=== PATIENT | male | born 1980 | race Two or more races ===

== ENCOUNTER 2024-10-05 00:14 | Emergency (ER) | payer MEDICAID, SELFPAY ==
[2024-10-05 00:15] VITALS: BP 141/97; PULSE 99; RESP 18; TEMP 36.8; O2SAT 99
[2024-10-05 00:17] VITALS: BMI 27.4
--- NOTE | 2024-10-05 00:50 | EDNOTE_ITS ---
ED Dental RME/HPI General Chief complaint: General Adult/Misc Complain Stated complaint: BLISTERSS IN MOUTH Time Seen by Provider: 10/05/24 00:17 Arrival date/time: 10/05/24 00:14 This is a case of a 44-year-old male with no medical history came in in the emergency room due to mouth pain history of present illness started 4 days prior to arrival in the emergency room patient noted a white spot on the tongue and buccal mucosa with small blisters patient denies any dental pain denies any pain or fever or chills. Denies sore throat Limitations: no limitations Related Data Previous Rx's ?Medication ?Instructions ?Recorded tramadol 50 mg tablet (Ultram) 50 mg PO Q6HR PRN sever e pain #30 10/12/15 tabs doxycycline monohydrate 100 mg 100 mg PO BID 10 days # 20 caps 10/05/24 capsule lidocaine HCl 2 % mucosal solution 10 ml PO Q4H PRN or al pain #100 mL 10/05/24 (Lidocaine Viscous) nystatin 100,000 unit/mL oral 500,000 unit (5 mL) PO T ID 3 days 10/05/24 suspension #45 mL Allergies Allergy/AdvReac Type Severity Reaction Status Date / Time No Known Allergies Allergy Verified 10/05/24 00:17 Review of Systems Review of Systems Systems Reviewed: All systems reviewed, normal except as documented Constitutional Constitutional: Reports system reviewed and no additional complaints, except as documented, Reports as per HPI and Denies headache(s) ENT Ears, Nose, Mouth, and Throat: Reports system reviewed and no additional complaints, except as documented, Reports as per HPI, Denies abnormal hearing, Denies bleeding gums, Denies change in voice, Denies dental pain, Denies dis equilibrium, Denies dizziness, Denies dry mouth, Denies dysphagia, Denies ear discharge, Denies otalgia, Denies epistaxis, Denies facial pain, Denies halitosis, Denies headache(s), Denies hearing loss, Denies hoarseness, Denies lip swelling, Reports mouth lesions, Reports mouth pain, Denies nasal congestion, Denies nasal discharge, Denies nasal obstruction, Denies nasal trauma, Denies neck mass, Denies neck pain, Denies nose pain, Denies odynophagia, Denies post nasal drip, Denies sinus pain, Denies sinus pressure, Denies sore throat, Denies throat swelling, Denies tinnitus, Denies vertigo and Denies other Cardiovascular Cardiovascular: Reports system reviewed and no additional complaints, except as documented and Reports as per HPI Respiratory Respiratory: Reports system reviewed and no additional complaints, except as documented and Reports as per HPI Gastrointestinal Gastrointestinal: Reports system reviewed and no additional complaints, except as documented, Reports as per HPI, Denies dysphagia and Denies odynophagia Musculoskeletal Musculoskeletal: Denies neck pain Neurologic Neurologic: Reports system reviewed and no additional complaints, except as documented, Reports as per HPI, Denies abnormal hearing, Denies disequilibrium, Denies dizziness, Denies headache(s) and Denies vertigo Allergic/Immunologic Allergic/Immunologic: Denies lip swelling and Denies throat swelling Past Medical History Past Medical History NEUROLOGIC: Negative Seizures CARDIAC: Negative Cardiac Disorders or Congestive Heart Failure RESPIRATORY: Negative Chronic Obstructive Pulmonary Disease (COPD) or Asthma GASTROINTESTINAL: Positive Ulcer GENITOURINARY: Negative Renal Disease ENDOCRINE: Negative Diabetes Mellitus Type 1 or Diabetes Mellitus Type 2 HEMATOLOGIC: Negative Sickle Cell Disease OTHER HISTORY: Negative Blood Transfusions, Blood Transfusion Reaction or Anesthesia Reactions Social History SMOKING STATUS: Never smoker SUBSTANCE USE: does not use ED Exam General Limitations: Present no limitations General appearance: Present alert, in no apparent distress and other (Patient is awake alert oriented not in distress nontoxic looking) Head Head exam: Present atraumatic, normocephalic and normal inspection Eye Eye exam: Present normal appearance, PERRL and EOMI ENT ENT exam: Present normal exam, normal oropharynx and mucous membranes moist Expanded ENT Exam External ear exam: Present other (HEENT exam except oral exam) Nose exam: Absent sinus tenderness, nasal deviation, crepitus, septal hematoma, laceration or abrasion Mouth exam: Present other (Noted white spots on the tongue and upper and buccal mucosa with small blister no ulcer no abscess no cellulitis); Absent drooling, trismus, lip swelling, tongue normal, tongue elevation or tongue swelling Teeth exam: Present normal inspection Throat exam: Present normal inspection; Absent tonsillar erythema, tonsillomegaly, tonsillar exudate, R peritonsillar mass, L peritonsillar mass or muffled voice Neck Neck exam: Present normal inspection, full ROM and trachea midline; Absent tenderness, meningismus, lymphadenopathy or thyromegaly Chest Chest inspection: Present normal inspection and symmetric chest wall rise; Absent tenderness Respiratory Respiratory exam: Present normal lung sounds bilaterally; Absent respiratory distress, wheezes, stridor, accessory muscle use or prolonged expiratory phase Cardiovascular Cardiovascular exam: Present regular rate and normal rhythm; Absent bradycardia, tachycardia, irregular rhythm, normal heart sounds or systolic murmur Abdominal Exam Abdominal exam: Present soft and normal bowel sounds Extremities Exam Extremities exam: Present normal inspection and full ROM Back Exam Back exam: Present normal inspection and full ROM Neurological Exam Neurological exam: Present alert, oriented X3, CN II-XII intact, normal gait and reflexes normal; Absent motor sensory deficit Psychiatric Psychiatric exam: Present normal affect and normal mood Skin Skin exam: Present warm, dry, intact and normal color Course Quality Measures none Vital Signs Vital signs: Vital Signs Temperature 98.2 F 10/05/24 00:15 Pulse Rate 99 10/05/24 00:15 Respiratory Rate 18 10/05/24 00:15 Blood Pressure 141/97 H 10/05/24 00:15 Pulse Oximetry (%) 99 10/05/24 00:15 Oxygen Delivery Method Room Air 10/05/24 00:15 Oxygen saturation is 90% in room air Dental / Oral MDM Narrative MDM Narrative:: This is a case of a 44-year-old male with no medical history came in in the emergency room due to mouth pain history of present illness started 4 days prior to arrival in the emergency room patient noted a white spot on the tongue and buccal mucosa with small blisters patient denies any dental pain denies any pain or fever or chills. Denies sore throat physical examination patient is awake alert oriented not in distress nontoxic looking well-hydrated well-nourished HEENT exam is normal except oral exam patient noted a white spot on the tongue suggestive of oral candidiasis dental exam is normal no cellulitis no abscess based on my physical examination and history patient symptoms suggestive of oral candidiasis patient was discharged with nystatin and lidocaine viscous as needed for pain patient requested with antibiotic that was discharged with doxycycline patient was advised to take the doxycycline if symptoms persist for more than 7 days for any worsening symptoms or any emergent concern return precaution in the emergency room was advised oral care is advised Patient was discharged with comfortable condition walking with stable gait. Patient verbalized no further complains explained diagnosis and answered patient question. Patient is comfortable with the proposed management plan including the need to follow up with his/her primary care physician and any specialist if applicable Discussed patient for any urgent condition or worsening sx, He/She needed to go to emergency room immediately or call 911. Patient acknowledge the responsibility to follow up as instructed and to monitor her/his symptoms. For any persistence of the symptoms for more than 3-5 days return precaution advised. Discussed the result of the test and was given printed discharge instruction Patient data External records reviewed:: [facility] previous records Clinical information provided by:: patient Social determinants that could affect healthcare access:: none Patient has the following chronic illnesses:: None How is presenting disease/condition affected by chronic disease/condition?: no chronic disease Evaluation data The following diagnostics were reviewed and interpreted by me:: other (specify) (None) Lab and/or radiology exams considered but not ordered:: None Interpretation Summary: None Medications / Prescriptions Medications or Prescriptions considered but not ordered:: Given Medication administrations:: Given Consultations Consultation(s) initiated? (list below): No Diagnosis Dental Differential Diagnosis: gingival abscess, aphthous ulcer and other (Oral candidiasis) Most likely diagnosis given after review of the tests above:: Oral candidiasis Admission Indicated Admission indicated?: not indicated Explain why admission is indicated or not indicated:: Not indicated Admission Request Was there a request for admission?: No Admission Attestation Admission request attestation: Not indicated Disposition Plan Disposition Plan: Discharge Discharge Attestation Discharge Attestation: The patient and all family members were given an opportunity to ask questions and understood the discharge instructions. Discharge instructions specifically effects, indications for sooner follow up or return to the emergency department, and the expected course of current diagnosis. Patient condition: Stable Discharge Plan Plan Patient Disposition: HOME (Self Care) Patient condition on transfer: Stable Prescriptions/Referrals Prescriptions/Med Rec: New nystatin 100,000 unit/mL suspension 500,000 unit PO TID 3 Days Qty: 45 0RF Rx Instructions: administer 1/2 of dose in each side of the mouth lidocaine HCl [Lidocaine Viscous] 2 % solution 10 ml PO Q4H PRN (Reason: oral pain) Qty: 100 0RF Rx Instructions: Swish and swallow doxycycline monohydrate 100 mg capsule 100 mg PO BID 10 Days Qty: 20 0RF No Action tramadol [Ultram] 50 MG tablet 50 mg PO Q6HR PRN (Reason: severe pain) Qty: 30 0RF Rx Instructions: FOR PAIN, NOT TO EXCEED 8 TABS IN 24 HRS Problem List Clinical Impression: Candidiasis, mouth Patient/Caregiver Discharge Instructions Education Materials: Dejah Infection: Thrush Additional Instructions: Follow-up with your primary care physician in 2 days for reevaluation worsening symptoms or any emergent concern call 911 or go to the nearest emergency room take your medication as directed oral care is advised Print Language: [place] Citizen Stand Alone Forms: Edyta Award Info., Patient Portal Info Letter PA/SOLE CONDITIONER Supervising Physician PA/SOLE CONDITIONER Supervising Physician: Dr. Downs
== END 2024-10-05 01:01 | disposition home or self-care (01) ==
LOC: SERX 01:02
PROVIDERS: Emergency Provider Emergency Medicine
DX: B37.0 Candidal stomatitis (principal)
CPT/HCPCS: 99281

== ENCOUNTER 2024-12-18 22:49 | Emergency (ER) | payer MEDICAID, SELFPAY ==
--- NOTE | 2024-12-18 00:29 | XR_ITS ---
EXAMINATION: AP chest single view TECHNIQUE: AP portable upright chest single view Date and time: December 19, 2024, 1218 hours, comparison February 04, 2022 INDICATIONS: Chest pain shortness of breath beginning 2 days ago. FINDINGS: Normal heart size Lungs are clear. Osseous structures are intact IMPRESSION: No active disease
[2024-12-18 22:49] VITALS: BMI 29.2
[2024-12-18 23:28] LABS: Collection Type, Urine Clean Catch; Squamous Epithelial Cell,Urine 0 /hpf (0-5)
[2024-12-18 23:31] VITALS: BP 130/81; PULSE 68; RESP 18; TEMP 36.6; O2SAT 97
[2024-12-18 23:42] LABS: Bilirubin,Urine Negative (Negative); Blood,Urine Negative (Negative); Clarity,Urine Clear (Clear/Hazy); Color,Urine Lt-Yellow (Lt Yel-Yel); Culture Indicated,Urine Not Indicated; Glucose, Urine Negative (Negative); Ketones,Urine Negative (Negative); Leukocyte Esterase,Urine Negative (Negative); Nitrite,Urine Negative (Negative); PH,Urine 6.5 (5.0-7.0); Protein,Urine Negative (Neg - Trace); RBC,Urine 2 /hpf (0-3); Specific Gravity,Urine 1.021 (1.001-1.035); Urobilinogen,Urine Negative mg/dL (0.0-1.0); WBC,Urine 2 /hpf (0-5)
--- NOTE | 2024-12-18 23:52 | XR_ITS ---
Examination: CT chest, without intravenous contrast. CT abdomen, without intravenous contrast. CT pelvis, without intravenous contrast. 2-D sagittal and coronal reconstructions. 3-D reconstructions. Date and time of exam: December 19, 2024, 0012 hours INDICATIONS: Left-sided chest and flank pain beginning 4 days ago CTDI vol (mgy) 7.21 DLP (MGycm) 523 Technique: Multiple CT images, 3.0 mm slice thickness, obtained chest, abdomen, pelvis, with the high-resolution 64 slice scanner.. Sagittal and coronal 2-D reconstructions are obtained. 3-D reconstructions Low dose protocols were performed. One or more of the following dose reduction techniques were used; automated exposure control, adjustment of the mA and/or KV according to patient size, use of iterative reconstruction technique. Findings: No thoracic aortic aneurysmal dilatation Pulmonary artery segments are not enlarged. No mediastinal lymphadenopathy. No pneumonia or pulmonary edema or pleural disease No focal liver or splenic lesions No gallstones No pancreatic or adrenal mass No renal or ureteral calculi, no hydronephrosis Aorta normal size No bowel obstruction 15 mm fat-containing umbilical hernia Normal appendix No diverticulitis The seminal vesicles are not enlarged Normal prostate Contracted urinary bladder Osseous structures are intact IMPRESSION: No acute process in the chest abdomen or pelvis
[2024-12-19 00:04] VITALS: BP 140/85; PULSE 80; RESP 18; TEMP 36.8; O2SAT 97
[2024-12-19] MEDS: SODIUM CHLORIDE 0.9% 1000 ML 1,000 ML 999 ML IV (00:06)
[2024-12-19] MEDS: ONDANSETRON INJ 2 MG/ML INJ 2 ML 4 MG IVP (00:07)
[2024-12-19] MEDS: KETOROLAC INJ 30 MG/ML VIAL IVP (00:07)
--- NOTE | 2024-12-19 00:10 | EDNOTE_ITS ---
ED Abdominal Pain RME/HPI General Chief Complaint: Abdominal Pain Stated complaint: LLQ PAIN X 4 DAYS Time seen by provider: 12/18/24 23:46 Arrival date/time: 12/18/24 22:49 RME / HPI RME / HPI narrative: See [facility] for Dr. Combs's HPI Documentation. Related Data Previous Rx's ?Medication ?Instructions ?Recorded tramadol 50 mg tablet (Ultram) 50 mg PO Q6HR PRN sever e pain #30 10/12/15 tabs lidocaine HCl 2 % mucosal solution 10 ml PO Q4H PRN or al pain #100 mL 10/05/24 (Lidocaine Viscous) acetaminophen 300 mg-codeine 30 mg 2 tab PO Q8H PRN pa in #20 tabs 12/19/24 tablet ibuprofen 600 mg tablet 600 mg PO TID PRN fever or p ain 12/19/24 #30 tabs Allergies Allergy/AdvReac Type Severity Reaction Status Date / Time No Known Allergies Allergy Verified 12/18/24 22:52 Review of Systems Review of Systems Systems Reviewed: All systems reviewed, normal except as documented Past Medical History Past Medical History GASTROINTESTINAL: Positive Ulcer ED Exam Narrative Physical exam: See [facility] for Dr. Combs's Physical Exam Documentation. Course Quality Measures none Orders Category Date Time Status Saline [Insert IV] NOW Care 12/18/24 23:[address] chest abdomen pelvis wo Stat Exams 12/18/24 23:52 Taken XR chest 1V portable Stat Exams 12/18/24 00:29 Taken Alcohol, Blood Medical Stat Lab 12/18/24 00:08 Completed Amylase Stat Lab 12/18/24 00:08 Completed Bilirubin,Direct Stat Lab 12/18/24 00:08 Completed CBC Stat Lab 12/18/24 00:08 Completed CK [Creatine Kinase] Stat Lab 12/18/24 00:08 Completed CMP [Comprehensive Metabolic Panel] Stat Lab 12/18/24 00:08 Completed Drug Screen,Urine Stat Lab 12/18/24 23:51 Completed Hemoglobin A1C [Glycohemoglobin w (eAG)] Stat Lab 12/18/24 00:08 Completed Lipase Stat Lab 12/18/24 00:08 Completed Magnesium Stat Lab 12/18/24 00:08 Completed UA, C/S IF [Urinalysis, C/S if Indicated] Stat Lab 12/18/24 23:20 Completed Ketorolac Inj [Toradol Inj] Med 12/18/24 23:51 Discontinued 30 mg IVP X1 ONE Ondansetron Inj [Zofran Inj] Med 12/18/24 23:51 Discontinued 4 mg IVP X1 ONE Sodium Chloride 0.9% 1000 ml [Ns] 1,000 ml Med 12/18/24 23:51 Discontinued IV 999 mls/hr Vital Signs Vital signs: Vital Signs Temperature 98 F 12/18/24 23:31 Pulse Rate 68 12/18/24 23:31 Respiratory Rate 18 12/18/24 23:31 Blood Pressure 130/81 12/18/24 23:31 Pulse Oximetry (%) 97 12/18/24 23:31 Oxygen Delivery Method Room Air 12/18/24 23:31 Abdominal Pain MDM MDM Narrative MDM Narrative:: This section includes all my notes and documentations, including HPI, PE, and ED course. Terrell Combs MD HPI: 44-year-old male here with several days of left-sided abdominal pain. Has trou ble localizing the pain further. Has trouble describing the quality and quantity of the pain. Seems to be worse with certain movement. 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 No other complaints. ROS: All negative except as documented in HPI. Physical Exam: General: Alert and oriented. No acute distress when remaining still. Eyes: Conjunctivae and lids clear. ENT: No nasal congestion. Neck: Supple. Heart: RRR. Lungs: No respiratory distress. Good air movement. No rhonchi, wheezing, rales. Abdomen: Soft with equivocal left-sided tenderness. Normal bowel sounds. No distension. No rebound or guarding. Back: No CVA tenderness. Skin: Warm and dry. Neuro: Alert and oriented X 3. I reviewed all diagnostic test results: My interpretation of the chest x-ray is: NAD. My review of the Chest/Abdomen/Pelvis CT report is: No acute findings. Blood tests and urine tests unremarkable. At this point, diagnoses include: Abdominal Wall Pain Treatment here included: IVF Toradol 30 mg Zofran 4 mg He felt much better. Recommended more outpatient workup. Based on my best medical judgment, made decision no further evaluation or treatment indicated at this time. Patient understands and agrees to the discharge instructions customized and printed, see below. Discharge Instructions from Dr. Combs printed for you: 1. After extensive evaluation, there is no emergency such as appendicitis needing urgent surgery. 2. And all your internal organs, including lungs and liver and kidneys are normal. 3. Your pain is most likely originating from the abdominal wall (see attached handout on abdominal muscle strain). And not from an internal organ. 4. Apply ice or heat if helpful. 5. Ibuprofen 600 mg every 6-8 hours today and tomorrow to decrease inflammation then as needed. 6. Tylenol with codeine for severe pain. 7. See a private doctor on 12/22/2024 for recheck. Ask to review all test results and official radiology reports, to make sure you receive all necessary follow-ups and monitoring. To make sure there is no serious intra-abdominal condition, ask for help with more investigation not available here in the ER. Such as EGD or scoping the stomach, colonoscopy or scoping the colon, and referral to see industrial gas servicer supervisor. 8. Seek immediate medical care with worsening or with any concerns. Terrell Combs MD Patient data External records reviewed:: [facility] previous records (Reviewed prior ED records from 10/05/24. Patient was seen for Candidiasis, mouth.) Clinical information provided by:: patient Social determinants that could affect healthcare access:: none Patient has the following chronic illnesses:: Ulcer How is presenting disease/condition affected by chronic disease/condition?: exacerbated by Evaluation data The following diagnostics were reviewed and interpreted by me:: lab results and radiology exam(s) Lab and/or radiology exams considered but not ordered:: None Interpretation Summary: I reviewed all diagnostic test results: My interpretation of the chest x-ray is: NAD. My review of the Chest/Abdomen/Pelvis CT report is: No acute findings. Blood tests and urine tests unremarkable. Medications / Prescriptions Medications or Prescriptions considered but not ordered:: None Medication administrations:: Medication Administration History Discontinued Medications Sodium Chloride (Ns) 1,000 mls @ 999 mls/hr IV .Q1H1M ONE Stop: 12/19/24 00:51 Last Infusion: 12/19/24 01:07 Dose: Infused Documented By: Admin: 12/19/24 00:06 Dose: 999 mls/hr Documented By: GERALDINE Ketorolac Tromethamine (Ketorolac Inj 30 Mg/Ml Vial) 30 mg IVP X1 ONE Stop: 12/18/24 23:52 Last Admin: 12/19/24 00:07 Dose: 30 mg Documented By: GERALDINE Ondansetron HCl (Ondansetron Inj 2 Mg/Ml Inj 2 Ml) 4 mg IVP X1 ONE; Protocol Stop: 12/18/24 23:52 Last Admin: 12/19/24 00:07 Dose: 4 mg Documented By: GERALDINE IVF Toradol 30 mg IV Zofran 4 mg IV Consultations Consultation(s) initiated? (list below): No Diagnosis Differential diagnosis abdominal pain: abdominal pain, calculus of kidney, constipation, gastroenteritis, pancreatitis, small bowel obstruction and other (Gastritis, GERD) Most likely diagnosis given after review of the tests above:: Abdominal Wall Pain Admission Indicated Admission indicated?: not indicated Explain why admission is indicated or not indicated:: With significant improvement and no condition needing emergent intervention, the re was no indication for admission. Admission Request Was there a request for admission?: No Disposition Plan Disposition Plan: Discharge Discharge Attestation Discharge Attestation: The patient and all family members were given an opportunity to ask questions and understood the discharge instructions. Discharge instructions specifically effects, indications for sooner follow up or return to the emergency department, and the expected course of current diagnosis. Patient condition: Stable Discharge Plan Plan Patient Disposition: HOME (Self Care) Prescriptions/Referrals Prescriptions/Med Rec: New acetaminophen-codeine 300-30 mg tablet 2 tab PO Q8H MDD 6 PRN (Reason: pain) Qty: 20 0RF ibuprofen 600 mg tablet 600 mg PO TID PRN (Reason: fever or pain) Qty: 30 0RF No Action tramadol [Ultram] 50 MG tablet 50 mg PO Q6HR PRN (Reason: severe pain) Qty: 30 0RF Rx Instructions: FOR PAIN, NOT TO EXCEED 8 TABS IN 24 HRS lidocaine HCl [Lidocaine Viscous] 2 % solution 10 ml PO Q4H PRN (Reason: oral pain) Qty: 100 0RF Rx Instructions: Swish and swallow Referrals: Faith Rasmussen PA-C [Primary Care Provider] - In 1 week Problem List Clinical Impression: Abdominal wall pain Patient/Caregiver Discharge Instructions Discharge Activity: activity as tolerated Education Materials: ED Muscle Strain, Abdomen Additional Instructions: Discharge Instructions from Dr. Combs printed for you: 1. After extensive evaluation, there is no emergency such as appendicitis needing urgent surgery. 2. And all your internal organs, including lungs and liver and kidneys are n ormal. 3. Your pain is most likely originating from the abdominal wall (see attached handout on abdominal muscle strain). And not from an internal organ. 4. Apply ice or heat if helpful. 5. Ibuprofen 600 mg every 6-8 hours today and tomorrow to decrease inflammation then as needed. 6. Tylenol with codeine for severe pain. 7. See a private doctor on 12/22/2024 for recheck. Ask to review all test results and official radiology reports, to make sure you receive all necessary follow-ups and monitoring. To make sure there is no serious intra-abdominal condition, ask for help with more investigation not available here in the ER. Such as EGD or scoping the stomach, colonoscopy or scoping the colon, and referral to see industrial gas servicer supervisor. 8. Seek immediate medical care with worsening or with any concerns. Print Language: [place] Stand Alone Forms: Edyta Award Info., Patient Portal Info Letter
[2024-12-19 00:38] LABS: Basophils # (Auto) 0.0 Thou/mm3 (0.0-0.2); Basophils % (Auto) 0 % (0-2.5); Eosinophils # (Auto) 0.1 Thou/mm3 (0.0-0.5); Eosinophils % (Auto) 1 % (0-10); Hematocrit 43.8 % (41.0-53.0); Hemoglobin 14.9 g/dL (13.5-16.0); Immature Granulocytes Auto 0.02 Thou/mm3 (0.00-0.00); Lymphocytes # (Auto) 0.9 Thou/mm3 (1.0-4.8); Lymphocytes % (Auto) 11 % (10-50); Mean Corpuscular HGB Conc 34.0 g/dl (31.0-37.0); Mean Corpuscular Hemoglobin 30.2 pg (25.0-35.0); Mean Corpuscular Volume 89 fL (80-100); Monocytes # (Auto) 0.5 Thou/mm3 (0.0-0.8); Monocytes % (Auto) 6 % (0-12); Neutrophils # (Auto) 6.3 Thou/mm3 (1.8-7.7); Neutrophils % (Auto) 81 % (37-80); Nucleated Red Blood Cell # 0.00 Thou/mm3 (0.00-0.00); Nucleated Red Blood Cell % 0 /100 WBC (0); Platelet Count 158 Thou/mm3 (140-440); RDW Standard Deviation 41.1 fL (35.1-43.9); Red Blood Count 4.93 Miln/mm3 (4.50-5.90); White Blood Count 7.8 Thou/mm3 (3.8-10.6)
[2024-12-19 00:52] LABS: Glucose Estimated Average 105 mg/dL (80-131); Hemoglobin A1C 5.3 % Hgb (4.8-6.0)
[2024-12-19 00:55] LABS: Alanine Aminotransferase 23 U/L (10-49); Albumin, Serum 4.6 gm/dL (3.5-5.0); Albumin/Globulin Ratio 2.0 (1.2-2.2); Alcohol, Blood Medical < 3.0 mg/dL (0-10.0); Alkaline Phosphatase 87 U/L (46-116); Amylase 108 U/L (30-118); Anion Gap 8 (7-16); Aspartate Amino Transferase 19 U/L (0-34); BUN/Creatinine Ratio 12 Ratio (12-20); Bilirubin,Direct 0.2 mg/dL (0.0-0.3); Bilirubin,Total 0.6 mg/dL (0.3-1.2); Blood Urea Nitrogen 11 mg/dL (9-23); Calcium 9.4 mg/dL (8.3-10.6); Calcium (Corrected) 9.4 mg/dL (8.5-10.1); Carbon Dioxide 28.1 mMol/L (20.0-31.0); Chloride 106 mMol/L (98-107); Creatine Kinase 115 U/L (34-171); Creatinine (Component) 0.9 mg/dL (0.6-1.3); Estimated Creatinine Clearance 95.9 mL/min (>60); Globulin 2.3 gm/dL (2.3-3.5); Glucose 103 mg/dL (74-106); Lipase 36 U/L (12-53); Magnesium 1.9 mg/dL (1.6-2.6); Osmolality,Calculated 282 (275-295); Potassium 4.0 mMol/L (3.4-5.1); Sodium 142 mMol/L (136-145); Total Protein 6.9 gm/dL (5.7-8.2); eGFR > 60 See Note
[2024-12-19 01:20] LABS: Amphetamine/Methamp Scrn,U Negative (Negative); Barbiturate Screen,Urine Negative (Negative); Benzodiazepines Screen,Urine Negative (Negative); Benzoylecgonine Screen, Ur Negative (Negative); Fentanyl Screen,Urine Negative (Negative); Opiate Screen,Urine Negative (Negative); THC Screen,Urine Negative (Negative)
--- NOTE | 2024-12-19 01:39 | PRELIM_ITS ---
CT scan of the chest, abdomen and pelvis without intravenous contrast (axial sections with sagittal and coronal reformats) December 19, 2024 0012 hours Clinical History: Left chest pain and left flank pain Comparison: None available at the time of this report. Findings: The lungs are clear. There is no pleural effusion or pneumothorax. The aorta is unremarkable on this noncontrast study. No evidence of mediastinal mass or lymphadenopathy. There is no pericardial effusion. The liver, gallbladder, spleen, pancreas, adrenals and kidneys are unremarkable on this noncontrast study. No evidence of bowel obstruction. The appendix is within normal limits. The urinary bladder is nondistended, limited evaluation. There is no free fluid or free air. The osseous structures are unremarkable. Impression: No evidence of acute intrathoracic, intraabdominal or pelvic pathology on this noncontrast study. Report Electronically Signed By: Denys Aldridge 12/19/2024 1:38:38 AM [EST]
[2024-12-19 02:03] VITALS: BP 134/64; PULSE 87; RESP 19; TEMP 36.7; O2SAT 99
== END 2024-12-19 02:07 | disposition home or self-care (01) ==
PROVIDERS: Emergency Provider Emergency Medicine; PCP Physician Assistant
DX: R10.9 Unspecified abdominal pain (principal)
CPT/HCPCS: 36415; 71045; 71250; 74176; 80053; 80307; 80320; 81001; 82150; 82248; 82550; 83036; 83690; 83735; 85025; 96361; 96374; 96375; 99284; J1885; J2405; J7030; G0480